=== PATIENT | male | born 1990 | race Hispanic/Latino ===

== ENCOUNTER → 2023-08-24 | Emergency (ER) | payer SELFPAY ==
[~2023-08-24] MED LIST: FAMOTIDINE 20 MG/2 ML VIAL IV ONE; NA CHLORIDE 0.9% 1,000 ML ONE; ONDANSETRON 4 MG/2 ML VIAL ONE
--- OUTSIDE RECORDS SUMMARY | 2023-08-24 16:34 | XMS REPORT | Continuity of Care Document ---
Author Name Unknown Address [address] [facility] [address] [place] [address] [facility] Address [address] [facility] [address] [place] [address] Care Team Providers Care Disease Education Specialist Name Role Phone SMOOTH SHARP Primary Care Physician Unavailab RICARDO Landon Attending Clinician Unava ilable KAL CURTIS Attending Clinician UnavailDR SMOOTH Archibald Attending Clinician Unavailable [phone] Attending Clinician Unavailable RICARDO WARE Attending Clinician Unavailable KAL CURTIS Attending Clinician Un available GENEVIEVE LERMA Attending Clinician Unavailable Kalpana Blanca Attending Clinician [phone] AshlynF Attending Clinician Unavailable BEATRIZ Attending Clinician Unavailable GUANACO OLIVARES PReyes Attending Clinician Unavailerna Prince Attending Clinician Unavailable SMOOTH SHARP M.D. Attending Clinician Unavailerna Bhandari Attending Clinician Unavailable DR SMOOTH SHARP Admitting Clinician Unavailable GENEVIEVE LERMA Admitting Clinician Unavailable KAL CURTIS Admitting Clinician Un available KAL CURTIS Admitting Clinician Unavailmelinda Arroyo_F Admitting Clinician Unavailable BEATRIZ Admitting Clinician Unavailable Niki Admitting Clinician Unavailable Thony Admitting Clinician Unavailable Payers Payer Name Policy Type Policy Number Effective Date Expirati on Date Source [employer] [place] [id number] 2021 00:00:00 2021 00:00:00 [place] [id number] [place] [id number] 2018 00:00:00 [facility] [id number] Problems Condition Name Condition Details Condition Category Status Onset Date Resolution Date Last Treatment Date Treating Clinician Comments Source Complete tear of anterior cruciate ligament of knee, left, initial encounter Complete tear of anterior cruciate ligament of knee, left, initial encounter Disease Active 08-28 00:00: 00 [facility] Tear of PCL (posterior cruciate ligament) of knee, left, initial encounter Tear of PCL (posterior cruciate ligament) of knee, left, initial encounter Disease Active 08-28 00:00: 00 [facility] Injury of posterolat eral corner of knee, left, initial encounter Injury of posterolat eral corner of knee, left, initial encounter Disease Active 08-28 00:00: 00 [facility] Acute medial meniscus tear of left knee Acute medial meniscus tear of left knee Disease Active 08-28 00:00: 00 [facility] Acute lateral meniscus tear of left knee Acute lateral meniscus tear of left knee Disease Active 08-28 00:00: 00 [facility] Hypertensi ve disorder Hypertensi ve Disorder Problem Active 03-01 00:00: 00 [facility] Obesity Obesity Problem Active 12-22 00:00: 00 [facility] Chronic low back pain Chronic Low Back Pain Problem Active 12-22 00:00: 00 [facility] Prediabete s Prediabete s Problem Active 12-22 00:00: 00 [facility] Smoker Smoker Problem Active 01-29 00:00: 00 [facility] On examinatio n - initial high BP On Examinatio n - Initial High BP Problem Active 01-29 00:00: 00 [facility] Herniated nucleus pulposus, L4-5 right Herniated nucleus pulposus, L4-5 right [facility] Lumbar radiculopa thy Lumbar radiculopa thy Problem Active [facility] 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 [facility] Family History Family Member Diagnosis Comments Start Date Stop Date Sourc e Unknown Family Member Family history of breast cancer Family History [facility] Social History Social Habit Start Date Stop Date Quantity Comments Source History of tobacco use Smokes tobacco daily [facility] Exposure to SARS-CoV-2 (event) 2022-02-16 00:00:00 2022-02-26 09:43:00 Not sure [facility] Alcohol intake 2022-02-26 00:00:00 2022-02-26 00:00:00 Current drinker of alcohol (finding) [facility] Alcohol Comment 2021-12-14 00:00:00 2021-12-14 00:00:00 2 [facility] Tobacco use and exposure 2021-11-23 00:00:00 2021-11-23 00:00:00 Smokeless tobacco non-user [facility] Cigarette pack-years 2021-08-27 00:00:00 2021-08-27 00:00:00 [facility] Sex Assigned At 1990 00:00:00 1990 00:00:00 [facility] Smoking Status Start Date Stop Date Source Light Tobacco Smoker [facility] Smokes tobacco daily 2021-11-23 00:00:00 [facility] Medications Ordered Medication Name Filled Medication Name Start Date Stop Date Current Medication? Ordering Clinician Indication Dosage Frequency Signature (SIG) Comments Components Source acetaminoph en-codeine (Tylenol w/ Codeine #3) 300-30 MG tablet 02-26 09:47: 31 02-26 00:00 :00 No acetaminop hen 300 mg-codeine 30 mg tablet TAKE 1 TABLET BY MOUTH EVERY 4-6 HOURS NEEDED FOR PAIN. [facility] acetaminoph en-codeine (Tylenol w/ Codeine #3) 300-30 MG tablet 12-04 14:19: 59 Yes acetaminop hen 300 mg-codeine 30 mg tablet TAKE 1 TABLET BY MOUTH EVERY 4-6 HOURS NEEDED FOR PAIN. [facility] acetaminoph en-codeine (Tylenol w/ Codeine #3) 300-30 MG tablet 12-04 10:50: 24 Yes acetaminop hen 300 mg-codeine 30 mg tablet TAKE 1 TABLET BY MOUTH EVERY 4-6 HOURS NEEDED FOR PAIN. [facility] rivaroxaban (Xarelto) 20 MG tablet 12-04 00:00: 00 Yes [id number] 20mg Take 1 tablet (20 mg total) by mouth 1 (one) time each day with dinner. Take with food. [facility] rivaroxaban (Xarelto) 20 MG tablet 12-04 00:00: 00 Yes [id number] 9101 20mg Take 1 tablet (20 mg total) by mouth 1 (one) time each day with dinner. Take with food. [facility] rivaroxaban (Xarelto) 20 MG tablet 12-04 00:00: 00 01-04 04:59 :00 No [id number] 9101 20mg Take 1 tablet (20 mg total) by mouth 1 (one) time each day with dinner. Take with food. [facility] HYDROcodone -acetaminop hen ([place]) 10-325 MG tablet 12-04 00:00: 00 12-15 04:59 :00 No [id number] 1{tbl} Q6H Take 1 tablet by mouth every 6 (six) hours if needed for severe pain for up to 10 days. [facility] HYDROcodone -acetaminop hen ([place]) 10-325 MG tablet 20 00:00: 00 11-30 04:59 :00 No [id number] 1{tbl} Q6H Take 1 tablet by mouth every 6 (six) hours if needed for severe pain for up to 10 days. [facility] diclofenac (Voltaren) 75 MG EC tablet -22 00:00: 00 09-22 04:59 :00 No [id number] 75mg Q.5D Take 1 tablet (75 mg total) by mouth 2 (two) times a day. Do not crush, chew, or split. [facility] diclofenac (Voltaren) 75 MG EC tablet 09-21 00:00: 00 09-22 04:59 :00 No [id number] 75mg Q.5D Take 1 tablet (75 mg total) by mouth 2 (two) times a day. Do not crush, chew, or split. [facility] diclofenac (Voltaren) 75 MG EC tablet 09-21 00:00: 00 09-22 04:59 :00 No [id number] 75mg Q.5D Take 1 tablet (75 mg total) by mouth 2 (two) times a day. Do not crush, chew, or split. [facility] diclofenac (Voltaren) 75 MG EC tablet 09-21 00:00: 00 09-22 04:59 :00 No [id number] 75mg Q.5D Take 1 tablet (75 mg total) by mouth 2 (two) times a day. Do not crush, chew, or split. [facility] diclofenac (Voltaren) 75 MG EC tablet 09-21 00:00: 00 09-22 04:59 :00 No [id number] 75mg Q.5D Take 1 tablet (75 mg total) by mouth 2 (two) times a day. Do not crush, chew, or split. [facility] diclofenac (Voltaren) 75 MG EC tablet 09-21 00:00: 00 09-22 04:59 :00 No [id number] 75mg Q.5D Take 1 tablet (75 mg total) by mouth 2 (two) times a day. Do not crush, chew, or split. [facility] acetaminoph en-codeine (Tylenol w/ Codeine #3) 300-30 MG tablet 08-27 13:12: 16 Yes acetaminop hen 300 mg-codeine 30 mg tablet TAKE 1 TABLET BY MOUTH EVERY 4-6 HOURS NEEDED FOR PAIN. [facility] acetaminoph en-codeine (Tylenol w/ Codeine #3) 300-30 MG tablet 08-27 13:12: 16 Yes acetaminop hen 300 mg-codeine 30 mg tablet TAKE 1 TABLET BY MOUTH EVERY 4-6 HOURS NEEDED FOR PAIN. [facility] acetaminoph en-codeine (Tylenol w/ Codeine #3) 300-30 MG tablet 08-27 13:12: 16 Yes acetaminop hen 300 mg-codeine 30 mg tablet TAKE 1 TABLET BY MOUTH EVERY 4-6 HOURS NEEDED FOR PAIN. [facility] HYDROcodone -acetaminop hen ([place]) 5-325 MG tablet 02-02 00:00: 00 Yes hydrocodon e 5 mg-acetami nophen 325 mg tablet TAKE ONE (1) TABLET(S) BY MOUTH EVERY SIX HOURS NEEDED FOR PAIN. [facility] HYDROcodone -acetaminop hen ([place]) 5-325 MG tablet 02-02 00:00: 00 Yes hydrocodon e 5 mg-acetami nophen 325 mg tablet TAKE ONE (1) TABLET(S) BY MOUTH EVERY SIX HOURS NEEDED FOR PAIN. [facility] HYDROcodone -acetaminop hen ([place]) 5-325 MG tablet 02-02 00:00: 00 Yes hydrocodon e 5 mg-acetami nophen 325 mg tablet TAKE ONE (1) TABLET(S) BY MOUTH EVERY SIX HOURS NEEDED FOR PAIN. [facility] HYDROcodone -acetaminop hen ([place]) 5-325 MG tablet 02-02 00:00: 00 Yes hydrocodon e 5 mg-acetami nophen 325 mg tablet TAKE ONE (1) TABLET(S) BY MOUTH EVERY SIX HOURS NEEDED FOR PAIN. [facility] HYDROcodone -acetaminop hen ([place]) 5-325 MG tablet 02-02 00:00: 00 Yes hydrocodon e 5 mg-acetami nophen 325 mg tablet TAKE ONE (1) TABLET(S) BY MOUTH EVERY SIX HOURS NEEDED FOR PAIN. [facility] HYDROcodone -Acetaminop hen 5-325 MG Oral Tablet HYDROcodone -Acetaminop hen 5-325 MG Oral Tablet 02-02 00:00: 00 Yes SMOOTH SHARP M.D. 1 TAKE 1 TABLET EVERY 6 HOURS NEEDED FOR PAIN. [facility] HYDROcodone -acetaminop hen ([place]) 5-325 MG tablet 02-02 00:00: 00 02-26 00:00 :00 No hydrocodon e 5 mg-acetami nophen 325 mg tablet TAKE ONE (1) TABLET(S) BY MOUTH EVERY SIX HOURS NEEDED FOR PAIN. [facility] gabapentin (Neurontin) 300 MG capsule 01-18 00:00: 00 Yes gabapentin 300 mg capsule TAKE ONE (1) CAPSULE(S) BY MOUTH THREE TIMES A DAY. [facility] gabapentin (Neurontin) 300 MG capsule 01-18 00:00: 00 Yes gabapentin 300 mg capsule TAKE ONE (1) CAPSULE(S) BY MOUTH THREE TIMES A DAY. [facility] gabapentin (Neurontin) 300 MG capsule 01-18 00:00: 00 Yes gabapentin 300 mg capsule TAKE ONE (1) CAPSULE(S) BY MOUTH THREE TIMES A DAY. [facility] gabapentin (Neurontin) 300 MG capsule 01-18 00:00: 00 Yes gabapentin 300 mg capsule TAKE ONE (1) CAPSULE(S) BY MOUTH THREE TIMES A DAY. [facility] gabapentin (Neurontin) 300 MG capsule 01-18 00:00: 00 Yes gabapentin 300 mg capsule TAKE ONE (1) CAPSULE(S) BY MOUTH THREE TIMES A DAY. [facility] Gabapentin 300 MG Oral Capsule Gabapentin 300 MG Oral Capsule 01-18 00:00: 00 Yes SMOOTH SHARP M.D. Q0.3333D TAKE 1 CAPSULE 3 TIMES DAILY. [facility] ans gabapentin (Neurontin) 300 MG capsule 01-18 00:00: 00 02-26 00:00 :00 No gabapentin 300 mg capsule TAKE ONE (1) CAPSULE(S) BY MOUTH THREE TIMES A DAY. [facility] Toprol XL 100 mg tablet,exte nded release Take 1 tablet every day by oral route. Toprol XL 100 mg tablet,exte nded release Take 1 tablet every day by oral route. No 1 Q1D Toprol XL 100 mg tablet,ext ended release Take 1 tablet every day by oral route. [facility] Vital Signs Vital Name Observation Time Observation Value Comments S ource Body height 2022-02-26 15:24:00 182.9 cm [facility] Body weight 2022-02-26 15:24:00 122.471 kg [facility] BMI 2022-02-26 15:24:00 36.62 kg/m2 [facility] Heart rate 2021-12-04 19:14:00 93 /min [facility] Body temperature 2021-12-04 19:14:00 36.94 [facility] Body weight 2021-12-04 19:14:00 [facility].471 [facility] BMI 2021-12-04 19:14:00 36.62 kg[facility]m2 [facility] Oxygen saturation in Arterial blood by Pulse oximetry 2021-12-04 19:14:00 97 /min [facility] Systolic blood pressure 2021-12-04 19:14:00 116 mm[Hg] [facility] Diastolic blood pressure 2021-12-04 19:14:00 73 mm[Hg] [facility] Body height 2021-12-04 15:50:00 182.9 cm [facility] Body weight 2021-12-04 15:50:00 122.471 kg [facility] BMI 2021-12-04 15:50:00 36.62 kg/m2 [facility] Body height 2021-11-23 16:47:00 182.9 cm [facility] Body weight 2021-11-23 16:47:00 122.471 [facility] BMI 2021-11-23 16:47:00 36.62 kg/m2 [facility] BP Diastolic 2020-07-03 00:00:00 90 mm[Hg] [place] [facility] Height 2020-07-03 00:00:00 72 [in_i] [place] [facility] BMI (Body Mass Index) 2020-07-03 00:00:00 35.3 kg/m2 [place] [facility] BP Systolic 2020-07-03 00:00:00 146 mm[Hg] Hernandez abril [facility] Body Weight 2020-07-03 00:00:00 4160 [oz_av] Ma [place] [facility] BP Diastolic 2020-03-01 00:00:00 97 mm[Hg] [place] [facility] Height 2020-03-01 00:00:00 72 [in_i] [place] [facility] BMI (Body Mass Index) 2020-03-01 00:00:00 34.9 kg/m2 [place] [facility] BP Systolic 2020-03-01 00:00:00 138 mm[Hg] Hernandez abril [facility] Body Weight 2020-03-01 00:00:00 4112 [oz_av] [place] [facility] BP Diastolic 2019-12-30 00:00:00 88 mm[Hg] [place] [facility] Height 2019-12-30 00:00:00 72 [in_i] [place] [facility] BMI (Body Mass Index) 2019-12-30 00:00:00 34.4 kg/m2 [place] [facility] BP Systolic 2019-12-30 00:00:00 136 mm[Hg] Hernandez abril [facility] Body Weight 2019-12-30 00:00:00 4054.4 [oz_av] [place] [facility] BP Diastolic 2019-12-23 00:00:00 90 mm[Hg] [place] [facility] Height 2019-12-23 00:00:00 72 [in_i] [place] [facility] BMI (Body Mass Index) 2019-12-23 00:00:00 34.3 kg/m2 [place] [facility] BP Systolic 2019-12-23 00:00:00 144 mm[Hg] Hernandez abril [facility] Body Weight 2019-12-23 00:00:00 4048 [oz_av] Dion [place] [facility] BP Diastolic 2019-02-12 00:00:00 94 mm[Hg] [place] [facility] Height 2019-02-12 00:00:00 72 [in_i] [place] [facility] BMI (Body Mass Index) 2019-02-12 00:00:00 35.9 kg/m2 [place] [facility] BP Systolic 2019-02-12 00:00:00 138 mm[Hg] Hernandez abril [facility] Body Weight 2019-02-12 00:00:00 264.7 [lb_av] Shaquille [place] [facility] BP Diastolic 2019-01-29 00:00:00 93 mm[Hg] Gabe kim [facility] Height 2019-01-29 00:00:00 72 [in_i] Rosa Maria fuller [facility] BMI (Body Mass Index) 2019-01-29 00:00:00 35.8 kg/m2 Dulce [facility] BP Systolic 2019-01-29 00:00:00 153 mm[Hg] David samuels [facility] Body Weight 2019-01-29 00:00:00 263.9 [lb_av] M kuldeep [facility] Body height 2020-02-16 12:14:00 72 [in_us] [facility] Body height 2020-01-14 08:51:00 72 [in_us] [facility] Procedures Procedure Date / Time Performed Performing Clinician Source D-DIMER, QUANTITATIVE 2021-12-04 20:20:00 [facility] 2021-12-04 20:20[facility] 2021-12-04 20:20:00 [facility] 2020-03-15 00:00:00 [facility] Post Op Promis 29 Survey 2020-02-18 00:00:00 [facility] MRI Spine lumbar wo contrast [id number] 2020-01-21 00:00:00 [facility] MRI, lumbar spine, w/o contrast 2019-12-23 00:00:00 [facility] Plan of Care Planned Activity Planned Date Details Comments Source Diagnostic Test Pending 2020-01-21 00:00:00 MRI Spine lumbar wo contrast [id number] [code = 15247-9] [facility] Encounters Start Date/Time End Date/Time Encounter Type Admission Type Attending Clinicians Care Facility Care Department Encounter ID Source 2022-07-27 02:33:20 Outpatient [facility] [id number] [facility] 2022-07-26 10:53:09 Outpatient [facility] [id number] [facility] 2022-05-02 12:18:14 Outpatient [facility] [id number] [facility] 2022-04-22 11:40:38 Outpatient [facility] [id number] [facility] 2022-04-10 13:08:16 Outpatient RICARDO WARE [id number] Memtrixie bailon 2022-04-09 09:22:54 Outpatient [facility] [id number] [facility] 2021-10-30 16:39:13 Outpatient [facility] [id number] [facility] 2021-10-08 10:52:47 Outpatient KAL CURTIS [facility] [id number] [facility] 2021-10-04 11:14:55 Outpatient [facility] [id number] [facility] 2021-09-21 10:48:53 Outpatient KAL CURTIS [facility] [id number] [facility] 2021-09-18 09:15:42 Outpatient KAL CURTIS [facility] [id number] [facility] 2021-09-14 14:10:28 Outpatient SMOOTH SHARP [id number] [facility] E[facility] [id number] [facility] 2021-09-12 08:25:47 Outpatient [facility] [id number] [facility] 2021-08-21 16:04:42 Outpatient [facility] [id number] [facility] 2022-06-04 11:30:00 2022-06-04 11:30:00 Outpatient RICARDO WARE [facility] [id number] [facility] 2022-05-22 11:00:00 2022-05-22 11:00:00 Outpatient [facility] [id number] [facility] 2022-05-21 15:00:00 2022-05-21 16:01:12 Outpatient [facility] [id number] [facility] 2022-05-06 10:30:00 2022-05-06 10:30:00 Outpatient KAL CURTIS [facility] [id number] [facility] 2022-04-23 08:45:00 2022-04-23 09:07:23 Outpatient KAL CURTIS [facility] [id number] [facility] 2022-04-23 08:30:00 2022-04-23 08:30:00 Outpatient KAL CURTIS [facility] [id number] [facility] 2022-04-16 09:23:00 2022-04-16 17:30:00 [facility] [id number] Analisa bailon 2022-04-16 13:15:00 2022-04-16 13:15:00 Outpatient KAL CURTIS [facility] [id number] [facility] 2022-02-26 10:15:00 2022-02-26 11:12:20 Office Visit Kal Curtis [facility] PHYSICIAN S ORTHOPEDI SHELBY HARDIN [id number] [facility] 2022-02-26 10:50:00 2022-02-26 10:50:00 Outpatient [facility] [id number] [facility] 2022-02-26 09:30:00 2022-02-26 09:56:24 Office Visit Paula Ricardo [facility] 1 [id number] [facility] 2022-02-14 13:00:00 2022-02-14 13:52:38 Outpatient [facility] [id number] [facility] 2022-01-22 14:45:00 2022-01-22 14:45:00 Outpatient BLESSINGRICARDO MONTERO [facility] [id number] [facility] 2022-01-07 10:45:00 2022-01-07 10:45:00 Outpatient KAL CURTIS [facility] [id number] [facility] 2021-12-04 14:15:00 2021-12-04 14:41:47 Office Visit PaulaRicardo [facility] 1 [id number] [facility] 2021-12-04 10:45:00 2021-12-04 11:28:07 Office Visit CurtisKal maxwell [facility] PHYSICIAN S ORTHOPEDI CS - [place] [id number] [facility] 2021-11-23 11:30:00 2021-11-23 12:09:38 Office Visit CurtisKal [facility] PHYSICIAN S ORTHOPEDI CS - [place] [id number] [facility] 2021-11-13 15:44:00 2021-11-14 16:27:00 Inpatient GENEVIEVE FLORES [facility] [id number] Analisa bailon 2021-11-13 10:15:00 2021-11-13 10:51:57 Office Visit Rajeev Kalpana [facility] PH[facility]ICIAN S ORTHOPEDI [facility] - [place] [id number] [facility] 2021-11-06 13:06:00 2021-11-06 21:00:00 Outpatient CURTISKAL MAXWELL [facility] [id number] Analisa bailon 2021-11-06 13:15:00 2021-11-06 13:15:00 Outpatient EVERKAL [facility] [id number] [facility] 2021-08-27 13:00:00 2021-08-27 13:46:27 Office Visit CurtisKal [facility] PHYSICIAN S ORTHOPEDI CS - [place] [id number] [facility] 2021-01-03 04:59:00 2021-01-03 04:59:00 Outpatient Cruz_F [facility] [id number] [facility] 2020-07-03 11:25:00 2020-07-03 11:25:00 Outpatient SHIMEK_SANDRA MELGAR [facility] [id number] [facility] 2020-07-03 02:31:00 2020-07-03 02:31:00 Outpatient SHIMEK_SANDRA MELGAR [facility] [id number] [facility] 2020-07-03 00:00:00 2020-07-03 00:00:00 Sandra Valentin, AIRCRAFT ORDNANCE TECHNICIAN: [address] [place] [address] , Ph. [facility] [address] [phone] [facility] 2020-03-15 10:45:00 2020-03-15 10:45:00 Appointargentina t; GUANACO OLIVARES, P.A. GUANACO OLIVARES, P.A. [facility] Orthopedics at [facility] [id number] [place] Phys[facility] 2020-03-01 12:07:00 2020-03-01 12:07:00 Outpatient Palermo_Kai tlin [facility] [id number] [facility] 2020-03-01 00:00:00 2020-03-01 00:00:00 Sandra Valentin, AIRCRAFT ORDNANCE TECHNICIAN: [address] [address] , Ph. [facility] [phone] [facility] 2020-02-24 03:18:00 2020-02-24 03:18:00 Outpatient Palermo_Kai tlin [facility] [id number] [facility] 2020-02-16 10:30:00 2020-02-16 10:30:00 Appointmen t; GUANACO OLIVARES, P.A. OLIVARESGUANACO VICK P.A. [facility] Orthopedics at [facility] [id number] [place] 2020-02-16 10:30:00 2020-02-16 10:30:00 Appointmen t; SMOOTH SHARP M.D. PRASARN, MARK, M.D. [facility] [id number] [place] Physici [place] 2020-02-03 07:30:00 2020-02-03 07:30:00 Appointmen t; SMOOTH SHARP M.D. PRASARN, MARK, M.D. [facility] Orthopedics Tra[facility] [id number] [place] Physici [place] 2020-01-12 14:00:00 2020-01-12 14:00:00 Appointmen t; SMOOTH SHARP M.D. PRASARN, MARK, M.D. [facility] Orthopedics at [facility] [id number] [place] 2019-12-30 11:14:00 2019-12-30 11:14:00 Outpatient Palermo_Kai tlin [facility] [id number] [facility] 2019-12-30 00:00:00 2019-12-30 00:00:00 Sandra Valentin, AIRCRAFT ORDNANCE TECHNICIAN: [place] [address] , Ph. [facility] [phone] [facility] 2019-12-23 05:10:00 2019-12-23 05:10:00 Outpatient Palermo_Kai tlin [facility] [id number] [facility] 2019-12-23 00:00:00 2019-12-23 00:00:00 Sandra Valentin, AIRCRAFT ORDNANCE TECHNICIAN: [place] [address] , Ph. [facility] [phone] [facility] 2019-12-22 04:05:00 2019-12-22 04:05:00 Outpatient Palermo_Kai tlin [facility] [id number] [facility] 2019-04-28 04:32:00 2019-04-28 04:32:00 Outpatient Thony MMG [facility] [id number] [facility] 2019-02-12 00:00:00 2019-02-12 00:00:00 Heather Kearns NP, S: [address], [address], [place] [address] , Ph. [facility] [phone] [facility] 2019-01-29 00:00:00 2019-01-29 00:00:00 Heather Kearns NP, S: [address], [address], [place] [address] , Ph. [facility] [phone] [facility] Results Test Description Test Time Test Comments Results Result Co mments Source [facility] Campus[facility]er, [id number] 14:00:00* Test Item Value Reference Range Interpretation Comments D-DIMER, QUANTITATIVE (test code = 95888-1) See_Comment H The D-Dimer test is used frequently to excludean acute PE or DVT. In patients with a low tomoderate clinical risk assessment and a D-Dimerresult <0.50 mcg/mL FEU, the likelihood of a PEor DVT is very low. However, a thromboembolicevent should not be excluded solely on the basisof the D-Dimer level. Increased levels of D-Dimerare associated with a PE, DVT, DIC, malignancies,inflammati on, sepsis, surgery, trauma, ,and advancing patient age.[Raymundo 2006 11:295(2):199-207] For additional information, please refer to:http://education.Cytosorbents.Infiniu/faq/F AQ149(This link is being provided for informational/education al purposes only) [Automated message] The system which generated this result transmitted reference range: <0.50 mcg/mL FEU. The reference range was not used to interpret this result as normal/abnormal. RAC (test code = RAC) Performing Organization Information: ? ?Site ID: [facility] ? ?Name: [facility] ? ?Address: [address] [place], [place] [address] ? ?Director: BAMBI ODELL MD Lab Interpretation (test code = 76399-4) Abnormal [place] EkyojvQdzllbp-[id number] 14:00:00* Test Item Value Reference Range Interpretation Comme nts INR (test code = 6301-6) H Reference Range ? 0.9-1.1Moderate-i ntensity Warfarin Therapy 2.0-3.0Higher-int ensity Warfarin Therapy ? 3.0-4.0 PT (test code = 5902-2) See_Comment H For additional information, please refer tohttp://Livekickatio nTiller/faq/UFC883( This link is being provided for informational/edu cational purposes only.) [Automated message] The system which generated this result transmitted reference range: 9.0 - 11.5 sec. The reference range was not used to interpret this result as normal/abnormal. RAC (test code = RAC) Performing Organization Information: ? ?Site ID: [facility] ? ?Name: [facility] ? ?Address: [address] [place] [address] ? ?Director: BAMBI ODELL MD Lab Interpretation (test code = 89527-8) Abnormal [place] [facility] 29 [id number] 13:33:04* Test Item Value Reference Range Interpretation Comme nts Pain Interference: (test cod e = Pain Interference:) 54.4 1 N Pain Intensity: (test code = Pain Intensity:) 35.8 1 N Physical Function: (test cod e = Physical Function:) 48 1 N Satisfaction Role: (test cod e = Satisfaction Role:) 68.7 1 N [place] PhysiciansCBC W Auto Differential panel - [id number] 00:00:00* Test Item Value Reference Range Interpretation Comme nts Leukocytes [#/volume] in Blo od by Automated count (test code = 6690-2) 6.3 x10e3/uL 3.4-10.8 Erythrocytes [#/volume] in Blood by Automated count (test code = 789-8) 5.19 x10e6/uL 4.14-5.80 Hemoglobin [Mass/volume] in Blood (test code = 718-7) 15.2 g/dL 13.0-17.7 Hematocrit [Volume Fraction] of Blood by Automated count (test code = 4544-3) 47.2 % 37.5-51.0 MCV [Entitic volume] by Automated count (test code = 787-2) 91 fL 79-97 MCH [Entitic mass] by Automa bharath count (test code = 785-6) 29.3 pg 26.6-33.0 MCHC [Mass/volume] by Automa bharath count (test code = 786-4) 32.2 g/dL 31.5-35.7 Erythrocyte distribution wid th [Ratio] by Automated count (test code = 788-0) 13.2 % 11.6-15.4 Platelets [#/volume] in Bloo d by Automated count (test code = 777-3) 269 x10e3/uL 150-450 Neutrophils/100 leukocytes i n Blood by Automated count (test code = 770-8) 43 % not estab. Lymphocytes/100 leukocytes i n Blood by Automated count (test code = 736-9) 44 % not estab. Monocytes/100 leukocytes in Blood by Automated count (test code = 5905-5) 8 % not estab. Eosinophils/100 leukocytes i n Blood by Automated count (test code = 713-8) 4 % not estab. Basophils/100 leukocytes in Blood by Automated count (test code = 706-2) 1 % not estab. immature cells (test code = immature cells) overcoiler Neutrophils [#/volume] in Bl ood by Automated count (test code = 751-8) 2.7 x10e3/uL 1.4-7.0 Lymphocytes [#/volume] in Bl ood by Automated count (test code = 731-0) 2.8 x10e3/uL 0.7-3.1 Monocytes [#/volume] in Bloo d by Automated count (test code = 742-7) 0.5 x10e3/uL 0.1-0.9 Eosinophils [#/volume] in Bl ood by Automated count (test code = 711-2) 0.2 x10e3/uL 0.0-0.4 Basophils [#/volume] in Bloo d by Automated count (test code = 704-7) 0.0 x10e3/uL 0.0-0.2 Immature granulocytes/100 leukocytes in Blood by Automated count (test code = 56840-8) 0 % not estab. Immature granulocytes [#/volume] in Blood by Automated count (test code = 33917-3) 0.0 x10e3/uL 0.0-0.1 Nucleated erythrocytes/100 leukocytes [Ratio] in Blood by Automated count (test code = 31821-0) overcoiler Morphology [Interpretation] in Blood Narrative (test code = 34419-5) overcoiler [facility] ProgramCom[facility] 2000 panel - Serum or [id number] 00:00:00* Test Item Value Reference Range Interpretation Comme nts Glucose [Mass/volume] in Serum or Plasma (test code = 2345-7) 92 mg/dL 65-99 Urea nitrogen [Mass/volume] in Serum or Plasma (test code = 3094-0) 12 mg/dL 6-20 Creatinine [Mass/volume] in Serum or Plasma (test code = 2160-0) 0.99 mg/dL 0.76-1.27 Glomerular filtration rate/1.73 sq M.predicted among non-blacks [Volume Rate/Area] in Serum, Plasma or Blood by Creatinine-based formula (CKD-EPI) (test code = 18104-2) 104 mL/min/1.73 >59 Glomerular filtration rate/1.73 sq M.predicted among blacks [Volume Rate/Area] in Serum, Plasma or Blood by Creatinine-based formula (CKD-EPI) (test code = 71197-3) 120 mL/min/1.73 >59 Urea nitrogen/Creatinine [Mass Ratio] in Serum or Plasma (test code = 3097-3) 12 9-20 Sodium [Moles/volume] in Serum or Plasma (test code = 2951-2) 142 mmol/L 134-144 Potassium [Moles/volume] in Serum or Plasma (test code = 2823-3) 4.3 mmol/L 3.5-5.2 Chloride [Moles/volume] in Serum or Plasma (test code = 2074-0) 101 mmol/L 96-106 Carbon dioxide, total [Moles/volume] in Serum or Plasma (test code = 2027-) 24 mmol/L 20-29 Calcium [Mass/volume] in Serum or Plasma (test code = 27810-7) 10.4 mg/dL 8.7-10.2 H Protein [Mass/volume] in Serum or Plasma (test code = 2885-2) 6.9 g/dL 6.0-8.5 Albumin [Mass/volume] in Serum or Plasma (test code = 175-7) 4.6 g/dL 4.1-5.2 Globulin [Mass/volume] in Serum by calculation (test code = 60587-0) 2.3 g/dL 1.5-4.5 Albumin/Globulin [Mass Ratio ] in Serum or Plasma (test code = 1759-0) 2.0 1.2-2.2 Bilirubin.total [Mass/volume ] in Serum or Plasma (test code = 1974-) 0.3 mg/dL 0.0-1.2 Alkaline phosphatase [Enzymatic activity/volume] in Serum or Plasma (test code = 6768-6) 68 IU/L 39-117 Aspartate aminotransferase [Enzymatic activity/volume] in Serum or Plasma (test code = 192-8) 26 IU/L 0-40 Alanine aminotransferase [Enzymatic activity/volume] in Serum or Plasma (test code = 1742-6) 30 IU/L 0-44 [facility] - [facility] or Plasma 2019-12-24 00:00:00* Test Item Value Reference Range Interpretation Comme nts Cholesterol [Mass/volume] in Serum or Plasma (test code = 2093-3) 198 mg/dL 100-199 Triglyceride [Mass/volume] i n Serum or Plasma (test code = 2571-8) 72 mg/dL 0-149 Cholesterol in HDL [Mass/vol ume] in Serum or Plasma (test code = 2084-9) 70 mg/dL >39 Cholesterol in VLDL [Mass/vo lume] in Serum or Plasma by calculation (test code = 54532-9) 14 mg/dL 5-40 Cholesterol in LDL [Mass/vol ume] in Serum or Plasma by calculation (test code = 06814-1) 114 mg/dL 0-99 H Laboratory comment [Text] in Report Narrative (test code = 75053-5) overcoiler [facility]em[facility] A[facility]/Hemoglobin.total in [id number] 00:00:00* Test Item Value Reference Range Interpretation Comme nts Hemoglobin A1c/Hemoglobin.to lenka in Blood (test code = 4548-4) 5.9 % 4.8-5.6 H [facility] Ab+HIV1 p24 Ag [Presence] in Serum or Plasma by Lusnfqjlrpt9992-90-62 00:00:00* Test Item Value Reference Range Interpretation Comme nts HIV 1+2 Ab+HIV1 p24 Ag [Presence] in Serum or Plasma by Immunoassay (test code = 44348-0) non reactive non reactive [facility] Hospital[facility]atitis [facility] virus Ab Signal/Cutoff in Serum or Plasma by Fvoqhcvmhgf4331-26-13 00:00:00* Test Item Value Reference Range Interpretation Comme nts Hepatitis C virus Ab Signal/ Cutoff in Serum or Plasma by Immunoassay (test code = 36685-3) <0.1 0.0-0.9 [facility] Hospital[facility] w/[id number] 00:00:00* Test Item Value Reference Range Interpretation Comme nts Thyrotropin [Units/volume] i n Serum or Plasma by Detection limit <= 0.005 mIU/L (test code = 11876-4) 2.880 uIU/mL 0.450-4.500 [facility], [id number] 00:00:00* Test Item Value Reference Range Interpretation Comme nts interpretation (test code = interpretation) note pdf (test code = pdf) . [facility] Auto Differential panel - Blood 2019-12-24 00:00:00* Test Item Value Reference Range Interpretation Comme nts Leukocytes [#/volume] in Blo od by Automated count (test code = 6690-2) 6.3 x10e3/uL 3.4-10.8 Erythrocytes [#/volume] in Blood by Automated count (test code = 789-8) 5.19 x10e6/uL 4.14-5.80 Hemoglobin [Mass/volume] in Blood (test code = 718-7) 15.2 g/dL 13.0-17.7 Hematocrit [Volume Fraction] of Blood by Automated count (test code = 4544-3) 47.2 % 37.5-51.0 MCV [Entitic volume] by Automated count (test code = 787-2) 91 fL 79-97 MCH [Entitic mass] by Automa bharath count (test code = 785-6) 29.3 pg 26.6-33.0 MCHC [Mass/volume] by Automa bharath count (test code = 786-4) 32.2 g/dL 31.5-35.7 Erythrocyte distribution wid th [Ratio] by Automated count (test code = 788-0) 13.2 % 11.6-15.4 Platelets [#/volume] in Bloo d by Automated count (test code = 777-3) 269 x10e3/uL 150-450 Neutrophils/100 leukocytes i n Blood by Automated count (test code = 770-8) 43 % not estab. Lymphocytes/100 leukocytes i n Blood by Automated count (test code = 736-9) 44 % not estab. Monocytes/100 leukocytes in Blood by Automated count (test code = 5905-5) 8 % not estab. Eosinophils/100 leukocytes i n Blood by Automated count (test code = 713-8) 4 % not estab. Basophils/100 leukocytes in Blood by Automated count (test code = 706-2) 1 % not estab. immature cells (test code = immature cells) overcoiler Neutrophils [#/volume] in Bl ood by Automated count (test code = 751-8) 2.7 x10e3/uL 1.4-7.0 Lymphocytes [#/volume] in Bl ood by Automated count (test code = 731-0) 2.8 x10e3/uL 0.7-3.1 Monocytes [#/volume] in Bloo d by Automated count (test code = 742-7) 0.5 x10e3/uL 0.1-0.9 Eosinophils [#/volume] in Bl ood by Automated count (test code = 711-2) 0.2 x10e3/uL 0.0-0.4 Basophils [#/volume] in Bloo d by Automated count (test code = 704-7) 0.0 x10e3/uL 0.0-0.2 Immature granulocytes/100 leukocytes in Blood by Automated count (test code = 27716-1) 0 % not estab. Immature granulocytes [#/volume] in Blood by Automated count (test code = 06271-3) 0.0 x10e3/uL 0.0-0.1 Nucleated erythrocytes/100 leukocytes [Ratio] in Blood by Automated count (test code = 66752-2) overcoiler Morphology [Interpretation] in Blood Narrative (test code = 64343-9) overcoiler [facility] ProgramCom[facility] metabolic 2000 panel - Serum or [id number] 00:00:00* Test Item Value Reference Range Interpretation Comme nts Glucose [Mass/volume] in Serum or Plasma (test code = 2345-7) 92 mg/dL 65-99 Urea nitrogen [Mass/volume] in Serum or Plasma (test code = 3094-0) 12 mg/dL 6-20 Creatinine [Mass/volume] in Serum or Plasma (test code = 2160-0) 0.99 mg/dL 0.76-1.27 Glomerular filtration rate/1.73 sq M.predicted among non-blacks [Volume Rate/Area] in Serum, Plasma or Blood by Creatinine-based formula (CKD-EPI) (test code = 31786-4) 104 mL/min/1.73 >59 Glomerular filtration rate/1.73 sq M.predicted among blacks [Volume Rate/Area] in Serum, Plasma or Blood by Creatinine-based formula (CKD-EPI) (test code = 55824-0) 120 mL/min/1.73 >59 Urea nitrogen/Creatinine [Mass Ratio] in Serum or Plasma (test code = 3097-3) 12 9-20 Sodium [Moles/volume] in Serum or Plasma (test code = 2951-2) 142 mmol/L 134-144 Potassium [Moles/volume] in Serum or Plasma (test code = 2823-3) 4.3 mmol/L 3.5-5.2 Chloride [Moles/volume] in Serum or Plasma (test code = 2075-0) 101 mmol/L 96-106 Carbon dioxide, total [Moles/volume] in Serum or Plasma (test code = 2027-) 24 mmol/L 20-29 Calcium [Mass/volume] in Serum or Plasma (test code = 43815-4) 10.4 mg/dL 8.7-10.2 H Protein [Mass/volume] in Serum or Plasma (test code = 2885-2) 6.9 g/dL 6.0-8.5 Albumin [Mass/volume] in Serum or Plasma (test code = 1751-7) 4.6 g/dL 4.1-5.2 Globulin [Mass/volume] in Serum by calculation (test code = 42672-0) 2.3 g/dL 1.5-4.5 Albumin/Globulin [Mass Ratio ] in Serum or Plasma (test code = 1759-0) 2.0 1.2-2.2 Bilirubin.total [Mass/volume ] in Serum or Plasma (test code = 1974-) 0.3 mg/dL 0.0-1.2 Alkaline phosphatase [Enzymatic activity/volume] in Serum or Plasma (test code = 6768-6) 68 IU/L 39-117 Aspartate aminotransferase [Enzymatic activity/volume] in Serum or Plasma (test code = 1920-8) 26 IU/L 0-40 Alanine aminotransferase [Enzymatic activity/volume] in Serum or Plasma (test code = 1742-6) 30 IU/L 0-44 [facility] - Serum or Plasma 2019-12-24 00:00:00* Test Item Value Reference Range Interpretation Comme nts Cholesterol [Mass/volume] in Serum or Plasma (test code = 2093-3) 198 mg/dL 100-199 Triglyceride [Mass/volume] i n Serum or Plasma (test code = 2571-8) 72 mg/dL 0-149 Cholesterol in HDL [Mass/vol ume] in Serum or Plasma (test code = 2085-9) 70 mg/dL >39 Cholesterol in VLDL [Mass/vo lume] in Serum or Plasma by calculation (test code = 13897-0) 14 mg/dL 5-40 Cholesterol in LDL [Mass/vol ume] in Serum or Plasma by calculation (test code = 50641-5) 114 mg/dL 0-99 H Laboratory comment [Text] in Report Narrative (test code = 93053-0) overcoiler [facility] HospitalHemoglobin A1c/Hemoglobin.total in [id number] 00:00:00* Test Item Value Reference Range Interpretation Comme nts Hemoglobin A1c/Hemoglobin.to lenka in Blood (test code = 4548-4) 5.9 % 4.8-5.6 H [facility] Ab+HIV1 p24 Ag [Presence] in Serum or Plasma by Gbqlmujyxqg4600-38-11 00:00:00* Test Item Value Reference Range Interpretation Comme nts HIV 1+2 Ab+HIV1 p24 Ag [Presence] in Serum or Plasma by Immunoassay (test code = 25684-6) non reactive non reactive [facility] HospitalHepatitis C virus Ab Signal/Cutoff in Serum or Plasma by Tuwpegazgno3170-55-59 00:00:00* Test Item Value Reference Range Interpretation Comme nts Hepatitis C virus Ab Signal/ Cutoff in Serum or Plasma by Immunoassay (test code = 25421-4) <0.1 0.0-0.9 [facility] HospitalTSH w/[id number] 00:00:00* Test Item Value Reference Range Interpretation Comme nts Thyrotropin [Units/volume] i n Serum or Plasma by Detection limit <= 0.005 mIU/L (test code = 33458-0) 2.880 uIU/mL 0.450-4.500 [facility], [id number] 00:00:00* Test Item Value Reference Range Interpretation Comme nts interpretation (test code = interpretation) note pdf (test code = pdf) . [facility] HospitalFree T4 and TSH panel - Serum or [id number] 00:00:00* Test Item Value Reference Range Interpretation Comme nts Thyrotropin [Units/volume] i n Serum or Plasma by Detection limit <= 0.005 mIU/L (test code = 98222-3) 4.040 uIU/mL 0.450-4.500 Thyroxine (T4) free [Mass/volume] in Serum or Plasma (test code = 3024-7) 1.50 NG/dL 0.82-1.77 [facility]CBC W Auto Differential panel - Blood 2019-01-30 00:00:00* Test Item Value Reference Range Interpretation Comme nts Leukocytes [#/volume] in Blo od by Automated count (test code = 6690-2) 7.0 x10e3/uL 3.4-10.8 Erythrocytes [#/volume] in Blood by Automated count (test code = 789-8) 5.14 x10e6/uL 4.14-5.80 Hemoglobin [Mass/volume] in Blood (test code = 718-7) 15.1 g/dL 13.0-17.7 Hematocrit [Volume Fraction] of Blood by Automated count (test code = 4544-3) 46.9 % 37.5-51.0 Erythrocyte mean corpuscular volume [Entitic volume] by Automated count (test code = 787-2) 91 fL 79-97 Erythrocyte mean corpuscular hemoglobin [Entitic mass] by Automated count (test code = 785-6) 29.4 pg 26.6-33.0 Erythrocyte mean corpuscular hemoglobin concentration [Mass/volume] by Automated count (test code = 786-4) 32.2 g/dL 31.5-35.7 Erythrocyte distribution wid th [Ratio] by Automated count (test code = 788-0) 14.5 % 12.3-15.4 Platelets [#/volume] in Bloo d by Automated count (test code = 777-3) 262 x10e3/uL 150-450 Neutrophils/100 leukocytes i n Blood by Automated count (test code = 770-8) 55 % not estab. Lymphocytes/100 leukocytes i n Blood by Automated count (test code = 736-9) 35 % not estab. Monocytes/100 leukocytes in Blood by Automated count (test code = 5905-5) 7 % not estab. Eosinophils/100 leukocytes i n Blood by Automated count (test code = 713-8) 3 % not estab. Basophils/100 leukocytes in Blood by Automated count (test code = 706-2) 0 % not estab. immature cells (test code = immature cells) overcoiler Neutrophils [#/volume] in Bl ood by Automated count (test code = 751-8) 3.8 x10e3/uL 1.4-7.0 Lymphocytes [#/volume] in Bl ood by Automated count (test code = 731-0) 2.4 x10e3/uL 0.7-3.1 Monocytes [#/volume] in Bloo d by Automated count (test code = 742-7) 0.5 x10e3/uL 0.1-0.9 Eosinophils [#/volume] in Bl ood by Automated count (test code = 711-2) 0.2 x10e3/uL 0.0-0.4 Basophils [#/volume] in Bloo d by Automated count (test code = 704-7) 0.0 x10e3/uL 0.0-0.2 immature granulocytes (test code = immature granulocytes) 0 % not estab. Granulocytes Immature [#/volume] in Blood by Automated count (test code = 73111-3) 0.0 x10e3/uL 0.0-0.1 Nucleated erythrocytes/100 leukocytes [Ratio] in Blood by Automated count (test code = 37766-6) overcoiler Morphology [interpretation] in Blood Narrative (test code = 12613-2) overcoiler [facility] ProgramComprehensive metabolic 2000 panel - Serum or [id number] 00:00:00* Test Item Value Reference Range Interpretation Comme nts Glucose [Mass/volume] in Serum or Plasma (test code = 2345-7) 106 mg/dL 65-99 H Urea nitrogen [Mass/volume] in Serum or Plasma (test code = 3094-0) 17 mg/dL 6-20 Creatinine [Mass/volume] in Serum or Plasma (test code = 2160-0) 1.03 mg/dL 0.76-1.27 eGFR if nonafricn AM (test code = eGFR if nonafricn AM) 100 mL/min/1.73 >59 eGFR if africn AM (test code = eGFR if africn AM) 115 mL/min/1.73 >59 Urea nitrogen/Creatinine [Mass Ratio] in Serum or Plasma (test code = 3097-3) 17 9-20 Sodium [Moles/volume] in Serum or Plasma (test code = 2951-2) 143 mmol/L 134-144 Potassium [Moles/volume] in Serum or Plasma (test code = 2823-3) 4.9 mmol/L 3.5-5.2 Chloride [Moles/volume] in Serum or Plasma (test code = 2074-0) 100 mmol/L 96-106 Carbon dioxide, total [Moles/volume] in Serum or Plasma (test code = 2027-) 24 mmol/L 20-29 Calcium [Mass/volume] in Serum or Plasma (test code = 31354-0) 10.7 mg/dL 8.7-10.2 H Protein [Mass/volume] in Serum or Plasma (test code = 2885-2) 7.6 g/dL 6.0-8.5 Albumin [Mass/volume] in Serum or Plasma (test code = 1751-7) 5.0 g/dL 3.5-5.5 Globulin [Mass/volume] in Serum by calculation (test code = 78138-1) 2.6 g/dL 1.5-4.5 Albumin/Globulin [Mass Ratio ] in Serum or Plasma (test code = 1759-0) 1.9 1.2-2.2 Bilirubin.total [Mass/volume ] in Serum or Plasma (test code = 1974-2) 0.3 mg/dL 0.0-1.2 Alkaline phosphatase [Enzymatic activity/volume] in Serum or Plasma (test code = 6768-6) 79 IU/L 39-117 Aspartate aminotransferase [Enzymatic activity/volume] in Serum or Plasma (test code = 1920-8) 33 IU/L 0-40 Alanine aminotransferase [Enzymatic activity/volume] in Serum or Plasma (test code = 1742-6) 47 IU/L 0-44 H [facility] HospitalUrinalysis complete panel - Urine 2019-01-30 00:00:00* Test Item Value Reference Range Interpretation Comme nts Specific gravity of Urine (t est code = 2965-2) 1.019 1.005-1.030 pH of Urine by Test strip (t est code = 5803-2) 7.0 5.0-7.5 Color of Urine (test code = 5778-6) yellow yellow Appearance of Urine (test co de = 5767-9) clear clear Leukocyte esterase [Presence ] in Urine by Test strip (test code = 5799-2) negative negative Protein [Presence] in Urine by Test strip (test code = 33455-6) negative negative/trace Glucose [Presence] in Urine (test code = 2349-9) negative negative Ketones [Presence] in Urine by Test strip (test code = 2514-8) negative negative Hemoglobin [Presence] in Uri ne by Test strip (test code = 5794-3) negative negative Bilirubin.total [Presence] i n Urine by Test strip (test code = 5770-3) negative negative Urobilinogen [Mass/volume] i n Urine by Test strip (test code = 81397-8) 0.2 mg/dL 0.2-1.0 Nitrite [Presence] in Urine by Test strip (test code = 5802-4) negative negative Microscopic observation [Identifier] in Urine sediment by Light microscopy (test code = 00428-1) see below: Leukocytes [#/area] in Urine sediment by Microscopy high power field (test code = 5821-4) 0-5 0-5 Erythrocytes [#/area] in Uri ne sediment by Microscopy high power field (test code = 10464-7) 0-2 0-2 Epithelial cells [#/area] in Urine sediment by Microscopy high power field (test code = 5787-7) 0-10 0-10 Epithelial cells.renal [#/ar ea] in Urine sediment by Microscopy high power field (test code = 11259-2) overcoiler Casts [Presence] in Urine se diment by Light microscopy (test code = 05802-3) overcoiler Casts [Type] in Urine sedime nt by Light microscopy (test code = 71021-3) overcoiler Unidentified crystals [Prese nce] in Urine sediment by Light microscopy (test code = 5783-6) overcoiler Crystals [type] in Urine sed iment by Light microscopy (test code = 5782-8) overcoiler Mucus [Presence] in Urine se diment by Light microscopy (test code = 8247-9) present not estab. Bacteria [#/area] in Urine sediment by Microscopy high power field (test code = 5769-5) none seen none seen/few Yeast [#/area] in Urine sedi ment by Microscopy high power field (test code = 5822-2) overcoiler Trichomonas vaginalis [Prese nce] in Urine sediment by Light microscopy (test code = 5813-1) overcoiler Urine sediment comments by L ight microscopy Narrative (test code = 73136-3) overcoiler [place] [facility] - Serum or Plasma 2019-01-30 00:00:00* Test Item Value Reference Range Interpretation Comme nts Cholesterol [Mass/volume] in Serum or Plasma (test code = 2093-3) 224 mg/dL 100-199 H Triglyceride [Mass/volume] i n Serum or Plasma (test code = 2571-8) 100 mg/dL 0-149 Cholesterol in HDL [Mass/vol ume] in Serum or Plasma (test code = 2085-9) 74 mg/dL >39 Cholesterol in VLDL [Mass/vo lume] in Serum or Plasma by calculation (test code = 45762-1) 20 mg/dL 5-40 Cholesterol in LDL [Mass/vol ume] in Serum or Plasma by calculation (test code = 37707-5) 130 mg/dL 0-99 H comment: (test code = comment:) [facility]coiler [facility].total in [id number] 00:00:00* Test Item Value Reference Range Interpretation Comme nts Hemoglobin A1c/Hemoglobin.to lenka in Blood (test code = 4548-4) 5.8 % 4.8-5.6 H [facility], [id number] 00:00:00* Test Item Value Reference Range Interpretation Comme nts interpretation (test code = interpretation) note pdf image (test code = pdf image) . [facility]
[2023-08-24 17:50] LABS: Absolute Monocytes 0.6 K/uL (0.1-1.3); Basophils % 0.4 % (0-1.3); Eosinophils % 0.4 % (0-4.4); Hematocrit 51.7 % (39.6-49.0); Hemoglobin 17.5 g/dL (13.6-17.9); Lymphocytes % 12.1 % (15.3-44.8); MCH 32.6 pg (27.0-35.0); MCHC 33.9 g/dL (32.0-36.0); MCV 96.1 fL (80-100); MPV 8.4 fL (7.6-11.3); Monocytes % 6.4 % (3.3-12.3); Neutrophils % 80.7 % (41.7-73.7); Platelets 251 thou/uL (152-406); RBC Red Blood Cell Count 5.38 M/uL (4.33-5.43); Red Cell Distribution Width 14.8 % (12.1-15.2)
[2023-08-24 18:06] LABS: Barbiturates NEGATIVE (NEGATIVE); Benzodiazepines NEGATIVE (NEGATIVE); Cocaine NEGATIVE (NEGATIVE); METHAMPHETAM NEGATIVE (NEGATIVE); Methadone NEGATIVE (NEGATIVE); Opiates NEGATIVE (NEGATIVE); Phencyclidine NEGATIVE (NEGATIVE); THC Cannibis NEGATIVE (NEGATIVE)
[2023-08-24 18:07] LABS: Specific Gravity > 1.030 (1.005-1.030); Sqamous Epithelial <5 /HPF (None Seen); Urine Bacteria <20 /HPF (<20); Urine Bilirubin NEGATIVE (Negative); Urine Blood Negative (Negative); Urine Clarity Extremely Turbid (Clear); Urine Color Yellow (Yellow); Urine Culture Reflex Order NOT NEEDED; Urine Glucose NEGATIVE (Negative); Urine Ketones TRACE (Negative); Urine Microscopic Reflex YN ORDER UMIC; Urine Mucus 4+ /HPF (None Seen); Urine Nitrite NEGATIVE (Negative); Urine Protein 1+ (Negative); Urine RBC <5 /HPF (None Seen); Urine Urobilinogen 1+ (Normal)
[2023-08-24 18:08] LABS: Albumin 4.3 g/dL (3.4-5.0); Albumin/Globulin Ratio 1.1 (1.1-1.8); Anion Gap 6.8 mEq/L (5.0-15.0); Potassium 3.8 mEq/L (3.5-5.1); Protein, Total 8.3 g/dL (6.4-8.2)
[2023-08-24 18:17] LABS: SARS-CoV-2 Antigen CONTROL BLUE LINE VIS/BG OK; SARS-CoV-2 Antigen Rapid Res Negative (Negative)
--- NOTE | 2023-08-24 19:38 | RAD REPORT ---
EXAM DESCRIPTION: US - Abdomen Exam Limited - 08/24/2023 6:49 pm CLINICAL HISTORY: vomiting, elevated liver enzymes COMPARISON: No comparisons FINDINGS: The gallbladder demonstrates no gallstones. No pericholecystic fluid or gallbladder wall t hickening. The common bile duct is normal measuring 2-3 mm. The liver demonstrates no findings of intrahepatic biliary dilatation. IMPRESSION: Unremarkable examination.
--- NOTE | 2023-08-24 20:04 | EDPHYS ---
Physician Documentation [facility] Name: Braulio Vallejo Age: 33 yrs Sex: Male : 1990 Arrival Date: 08/24/2023 Time: 16:30 Bed 17 Private MD: LETY Physician Sánchez Erwin HPI: 08/23 17:15 This 33 yrs old Male presents to ER via Ambulatory with complaints of cp Nausea/Vomiting, Dehydrated. 17:15 The patient presents to the emergency department with nausea, that is moderate, cp vomiting, that is intermittent, described as bilious. Onset: The symptoms/episode began/occurred this morning. Possible causes: unknown. Associated signs and symptoms: Pertinent negatives: abdominal pain, constipation, diarrhea, fever, GI bleeding. Severity of symptoms: in the emergency department the symptoms are unchanged. 17:15 Patient reports he was released from long term this morning after being arrested late Friday cp and being in long term Friday. Did not eat and/or drink while in long term. Historical: - Allergies: 16:46 No Known Allergies; nj1 - PMHx: 16:46 Hypertensive disorder; nj1 - PSHx: 16:46 Back surgery; Operative procedure on knee; nj1 - Immunization history:: Client reports having NOT received the Covid vaccine. - Social history:: Smoking status: Patient reports the use of cigarette tobacco products, smokes one-half pack cigarettes per day. ROS: 17:17 Constitutional: Negative for fever, cp 17:17 Abdomen/GI: Positive for nausea and vomiting, anorexia, Negative for abdominal pain, diarrhea, constipation, hematemesis, 17:17 Eyes: Negative for injury, pain, redness, and discharge, cp 17:17 ENT: Negative for drainage from ear(s), ear pain, sore throat, difficulty swallowing, difficulty handling secretions, 17:17 Cardiovascular: Negative for chest pain, 17:17 Respiratory: Negative for cough, shortness of breath, wheezing, 17:17 : Negative for urinary symptoms, 17:17 Neuro: Positive for dizziness, Negative for altered mental status, weakness, 17:17 All other systems are negative, Exam: 17:20 Constitutional: The patient appears in no acute distress, alert, awake, cp non-diaphoretic, non-toxic, well developed, well nourished, obese, 17:20 Head/Face: Normocephalic, atraumatic. cp 17:20 Eyes: Periorbital structures: appear normal, Conjunctiva: normal, no exudate, no cp injection, Sclera: no appreciated abnormality, Lids and lashes: appear normal, bilaterally, 17:20 ENT: External ear(s): are unremarkable, Nose: is normal, Mouth: Lips: moist, Oral cp mucosa: pink and intact, moist, Posterior pharynx: Airway: no evidence of obstruction, patent, swelling, is not appreciated, erythema, is not appreciated, exudate, is not appreciated, 17:20 Neck: ROM/movement: is normal, is supple, without pain, no range of motions limitations, 17:20 Chest/axilla: Inspection: normal, Palpation: is normal, no crepitus, no tenderness, 17:20 Cardiovascular: Rate: normal, Rhythm: regular, 17:20 Respiratory: the patient does not display signs of respiratory distress, Respirations: normal, no use of accessory muscles, no retractions, labored breathing, is not present, Breath sounds: are clear throughout, no decreased breath sounds, no stridor, no wheezing, 17:20 Abdomen/GI: Inspection: abdomen appears normal, Bowel sounds: active, all quadrants, Palpation: abdomen is soft and non-tender, in all quadrants, 17:20 Back: pain, is absent, ROM is normal, 17:20 Neuro: Orientation: to person, place \T\ time. Mentation: is normal, Motor: moves all fours, strength is normal, Vital Signs: 16:44 BP 154 / 110; Pulse 77; Resp 18; Temp 98.4(O); Pulse Ox 100% on R/A; Weight 122.47 kg; nj1 Height 6 ft. 0 in. ; 17:30 BP 133 / 74; Pulse 59; Resp 18; Pulse Ox 100% ; cp4 19:28 BP 134 / 93; Pulse 80; Pulse Ox 97% on R/A; Pain 0/10; tm6 20:56 BP 130 / 82; Pulse 58; Resp 17; Temp 98(TE); Pulse Ox 99% on R/A; Pain 0/10; tm6 16:44 Body Mass Index 36.62 (122.47 kg, 182.88 cm) nj1 19:28 Pain Scale: Adult tm6 20:56 Pain Scale: Adult tm6 MDM: 16:50 Patient medically screened. [facility] 20:02 Data reviewed: vital signs, nurses notes, lab test result(s), radiologic studies, cp ultrasound. 20:02 Differential diagnosis: gastritis, cholecystitis, pancreatitis, viral gastroenteritis, cp gastroenteritis. I considered the following discharge prescriptions or medication management in the emergency department Medications were administered in the Emergency Department. See MAR. Counseling: I had a detailed discussion with the patient and/or guardian regarding the historical points, exam findings, and any diagnostic results supporting the discharge/admit diagnosis, lab results, radiology results, to return to the emergency department if symptoms worsen or persist or if there are any questions or concerns that arise at home. Response to treatment: the patient's symptoms have markedly improved after treatment, and as a result, I will discharge patient. ED course: nausea improved and no vomiting observed while monitoring patient in ED. Will discharge to home for continued monitoring. 08/23 17:10 Order name: CBC with Diff; Complete Time: 17:52 08/23 17:52 Interpretation: Normal except: HCT 51.7; ALLY% 80.7; LYM% 12.1. 08/23 17:10 Order name: CMP; Complete Time: 18:10 08/23 18:11 Interpretation: Normal except: GFR 84; AST 81; ALT 115; TP 8.3; GLOB 4.0. 08/23 17:10 Order name: Lipase; Complete Time: 18:10 08/23 17:10 Order name: Urinalysis w/ reflexes; Complete Time: 18:10 08/23 18:11 Interpretation: Normal except: [facility] Extremely Turbid; Urine SG > 1.030; UKET TRACE; cp UPROT 1+; UUROB 1+; UESTR 25; MUCUS 4+. 08/23 17:10 Order name: UDS; Complete Time: 18:10 08/23 17:18 Order name: SARS RAPID; Complete Time: 19:35 cp 08/23 19:35 Interpretation: Reviewed. 08/23 17:18 Order name: Influenza Screen (a \T\ B); Complete Time: 19:35 08/23 19:35 Interpretation: Reviewed. 08/23 18:13 Order name: US Abdomen Limited; Complete Time: 19:42 08/23 19:42 Interpretation: Report reviewed. 08/23 17:10 Order name: IV Saline Lock; Complete Time: 17:30 cp 08/23 17:10 Order name: Labs collected and sent; Complete Time: 17:30 cp 08/23 19:43 Order name: PO challenge; Complete Time: 19:55 cp Administered Medications: 17:27 Drug: NS 0.9% IV 1000 ml IV at 1 bolus Per protocol; 1000 mL bolus Route: IV; Rate: 1 cp4 bolus; Site: left antecubital; 18:29 Follow up: Response: No adverse reaction; IV Status: Completed infusion cp4 20:57 Follow up: IV Status: Completed infusion; IV Intake: 1000ml tm6 17:27 Drug: Famotidine IVP 20 mg IVP once; dilute with 10 mL 0.9% NaCl; give over 2 minutes cp4 Route: IVP; Site: left antecubital; 18:29 Follow up: Response: No adverse reaction cp4 17:27 Drug: Ondansetron IVP 4 mg IVP once; over 2 minutes Route: IVP; Site: left antecubital; cp4 18:30 Follow up: Response: No adverse reaction cp4 Disposition Summary: 08/24/23 20:03 Discharge Ordered Notes: Location: Home cp Problem: new cp Symptoms: have improved cp Condition: Stable cp Diagnosis - Nausea with vomiting, unspecified cp Followup: cp - With: Private Physician - When: 2 - 3 days - Reason: Recheck today's complaints Discharge Instructions: - Discharge Summary Sheet cp - Nausea and Vomiting, Adult cp Forms: - Medication Reconciliation Form cp - Thank You Letter cp - Antibiotic Education cp - Prescription Opioid Use cp - Patient Portal Instructions cp - Leadership Thank You Letter cp - Work release form tm6 Prescriptions: - Pepcid 20 mg Oral Tablet - take 1 tablet ORAL route every 12 hours for 5 days; 10 tablet; Refills: 0, cp Product Selection Permitted - ondansetron 8 mg Oral Tablet,disintegrating - take 1 tablet ORAL route every 12 hours; 10 tablet; Refills: 0, Product cp Selection Permitted Signatures: Dispatcher [employer] Sánchez Jaeger MD MD cha Page, Corey, PA PA cp Madyson Baltazar RN RN njJeannie Burgess cp4 Michael Sherwood RN tm6
--- NOTE | 2023-08-24 20:04 | ER ---
Nurse's Notes [facility] Name: Braulio Vallejo Age: 33 yrs Sex: Male : 1990 Arrival Date: 08/24/2023 Time: 16:30 Bed 17 Private MD: Diagnosis: Nausea with vomiting, unspecified Presentation: 08/23 16:44 Chief complaint: Patient states: Vomiting today, nauseous. Unable to keep anything nj1 down. Denies diarrhea/fever. Coronavirus screen: Vaccine status: Patient reports being unvaccinated. Ebola Screen: Patient denies travel to an Ebola-affected area in the 21 days before illness onset. Initial Sepsis Screen: Does the patient meet any 2 criteria? No. Patient's initial sepsis screen is negative. Does the patient have a suspected source of infection? No. Patient's initial sepsis screen is negative. Risk Assessment: Do you want to hurt yourself or someone else? Patient reports no desire to harm self or others. Onset of symptoms was August 24, 2023. 16:44 Method Of Arrival: Ambulatory [facility] 16:44 Acuity: ZAMZAM 3 nj1 Triage Assessment: 19:00 GI: Reports nausea, vomiting. tm6 Historical: - Allergies: 16:46 No Known Allergies; nj1 - PMHx: 16:46 Hypertensive disorder; nj1 - PSHx: 16:46 Back surgery; Operative procedure on knee; nj1 - Immunization history:: Client reports having NOT received the Covid vaccine. - Social history:: Smoking status: Patient reports the use of cigarette tobacco products, smokes one-half pack cigarettes per day. Screenin:18 [facility] ED Fall Risk Assessment (Adult) History of falling in the last 3 months, cp4 including since admission No falls in past 3 months (0 pts) Confusion or Disorientation No (0 pts) Intoxicated or Sedated No (0 pts) Impaired Gait No (0 pts) Mobility Assist Device Used No (0 pt) Altered Elimination No (0 pt) Score/Fall Risk Level 0 - 2 = Low Risk Oriented to surroundings, Maintained a safe environment, Assessed \T\ reinforced patient's understanding of fall precautions, Hourly rounding (assess needs \T\ fall precautionary measures) done. Abuse screen: Denies threats or abuse. Nutritional screening: No deficits noted. Tuberculosis screening: No symptoms or risk factors identified. Assessment: 18:18 General: Appears uncomfortable, Behavior is calm, cooperative, appropriate for age. cp4 Pain: Denies pain. GI: Abdomen is round non-distended, Bowel sounds present X 4 quads. Abd is soft and non tender X 4 quads. 19:28 Reassessment: Patient and/or family updated on plan of care and expected duration. Pain tm6 level reassessed. Patient is alert, oriented x 3, equal unlabored respirations, skin warm/dry/pink. 19:56 Reassessment: Patient states feeling better. Patient states symptoms have improved. tm6 20:56 Reassessment: Patient and/or family updated on plan of care and expected duration. Pain tm6 level reassessed. Patient is alert, oriented x 3, equal unlabored respirations, skin warm/dry/pink. Patient states feeling better. Patient states symptoms have improved. Vital Signs: 16:44 BP 154 / 110; Pulse 77; Resp 18; Temp 98.4(O); Pulse Ox 100% on R/A; Weight 122.47 kg; nj1 Height 6 ft. 0 in. ; 17:30 BP 133 / 74; Pulse 59; Resp 18; Pulse Ox 100% ; cp4 19:28 BP 134 / 93; Pulse 80; Pulse Ox 97% on R/A; Pain 0/10; tm6 20:56 BP 130 / 82; Pulse 58; Resp 17; Temp 98(TE); Pulse Ox 99% on R/A; Pain 0/10; tm6 16:44 Body Mass Index 36.62 (122.47 kg, 182.88 cm) nj1 19:28 Pain Scale: Adult tm6 20:56 Pain Scale: Adult tm6 ED Course: 16:32 Patient arrived in ED. mr 16:43 Sánchez Valencia PA is PHCP. cp 16:43 Sánchez Erwin MD is Attending Physician. cp 16:46 Triage completed. nj1 16:47 Arm band placed on right wrist. nj1 17:03 Jeannie Mckeon is Primary Nurse. cp4 17:30 Initial lab(s) drawn, by pa, sent to lab. Urine collected: clean catch specimen, clear. [id number] Inserted saline lock: 22 gauge in left antecubital area, using aseptic technique. Blood collected. 18:01 Influenza Screen (a \T\ B) Sent. cp4 18:01 SARS RAPID Sent. cp4 18:18 Bed in low position. Call light in reach. Side rails up X 1. cp4 18:18 No provider procedures requiring assistance completed. cp4 18:51 US Abdomen Limited In Process Unspecified. EDMS 19:00 Provided Education on: use of call rust. Door closed. Noise minimized. Lights dimmed. tm6 Warm blanket given. 19:28 Michael Sherwood, RN is Primary Nurse. tm6 19:40 PO fluids given. tm6 20:57 IV discontinued, intact, bleeding controlled, No redness/swelling at site. Pressure tm6 dressing applied. Administered Medications: 17:27 Drug: NS 0.9% IV 1000 ml IV at 1 bolus Per protocol; 1000 mL bolus Route: IV; Rate: 1 cp4 bolus; Site: left antecubital; 18:29 Follow up: Response: No adverse reaction; IV Status: Completed infusion cp4 20:57 Follow up: IV Status: Completed infusion; IV Intake: 1000ml tm6 17:27 Drug: Famotidine IVP 20 mg IVP once; dilute with 10 mL 0.9% NaCl; give over 2 minutes cp4 Route: IVP; Site: left antecubital; 18:29 Follow up: Response: No adverse reaction cp4 17:27 Drug: Ondansetron IVP 4 mg IVP once; over 2 minutes Route: IVP; Site: left antecubital; cp4 18:30 Follow up: Response: No adverse reaction cp4 Medication: 18:18 VIS not applicable for this client. cp4 Intake: 20:57 IV: 1000ml; Total: 1000ml. tm6 Outcome: 20:03 Discharge ordered by . cp 20:56 Discharged to home ambulatory, with family, tm6 20:56 Condition: stable 20:56 Discharge instructions given to patient, Instructed on discharge instructions, follow up and referral plans. medication usage, Demonstrated understanding of instructions, follow-up care, medications, Prescriptions given X 2, 20:57 Patient left the ED. tm6 Signatures: Dispatcher [employer] EDPA BasurtoSandra, Naif Reg mr Sánchez Valencia, Madyson Farooq cp, RN RN nj1 Jeannie Mckeon cp4 Michael Sherwood RN RN tm6 Perfecto Rosales [email or web address]
[2023-08-24 21:29] VITALS: BP 130/82; TEMP 98; O2SAT 99
== END ==
LOC: ER 16:30
DX: R11.2 Nausea with vomiting, unspecified (principal); Z11.52 Encounter for screening for COVID-19
CPT/HCPCS: 36415; 76705; 80053; 80307; 81001; 83690; 85025; 87804; 87811; 96361; 96374; 96375; 99284; J2405; J7030